=== PATIENT | female | born 1990 | race Caucasian/White ===

== ENCOUNTER 2017-02-12 09:43 | Emergency (ER) | payer BC ==
[2017-02-12 10:28] VITALS: BP 121/62
--- NOTE | 2017-02-12 11:07 | UC ---
Throat Pain/Nasal Sebastian HPI - HPI Summary HPI Summary: This is a 26 yo female who presents with c/o ST. She has chronically enlarged tonsils. She states she was yelling at a FB game yesterday and had a sudden onset of throat pain and tasted blood. She then became nauseous and vomited after dinner. Her nausea immediately resolved after vomiting. She feels that her R tonsil is swollen. No fever. No other recent illness. - History of Current Complaint Chief Complaint: UCRespiratory Stated Complaint: SORE THROAT Hx Last Menstrual Period: 04/03/16 - Allergies/Home Medications Allergies/Adverse Reactions: Allergies Allergy/AdvReac Type Severity Reaction Status Date / Time No Known Allergies Allergy Verified 02/12/17 10:26 PMH/Surg Hx/FS Hx/Imm Hx Previously Healthy: Yes - Surgical History Surgical History: None - Family History Known Family History: Positive: None - neg for HTN or CAD - Social History Alcohol Use: Rare Substance Use Type: None Smoking Status (MU): Never Smoked Tobacco Have You Smoked in the Last Year: No - Immunization History Most Recent Influenza Vaccination: jan 2015 Hx Tetanus, Diphtheria Vaccination: Yes Vaccination Up to Date: Yes Review of Systems Constitutional: Negative Skin: Negative Eyes: Negative ENT: Sore Throat Respiratory: Negative Cardiovascular: Negative Gastrointestinal: Negative Genitourinary: Negative Motor: Negative Neurovascular: Negative Musculoskeletal: Negative Neurological: Negative Psychological: Negative Is Patient Immunocompromised?: No All Other Systems Reviewed And Are Negative: Yes Physical Exam Triage Information Reviewed: Yes Appearance: Well-Appearing Vital Signs: Initial Vital Signs Temp 97.5 F 02/12/17 10:26 Pulse 64 02/12/17 10:26 Resp 16 02/12/17 10:26 BP 121/62 02/12/17 10:26 Pulse Ox 98 02/12/17 10:26 Vital Signs Reviewed: Yes ENT: Positive: Pharynx normal, TMs normal, Tonsillar swelling - 1-2+ (patient states this is chronic). Negative: Pharyngeal erythema, Tonsillar exudate Neck: Positive: Supple, Nontender, No Lymphadenopathy Respiratory: Positive: Lungs clear, Normal breath sounds. Negative: Crackles, Rhonchi, Wheezing Cardiovascular: Positive: RRR, No Murmur Abdomen Description: Positive: Nontender, Soft Musculoskeletal: Positive: Strength Intact Neurological: Positive: Alert Psychological Exam: Normal Psychological: Positive: Normal Response To Family Skin Exam: Normal Diagnostics - Laboratory Diagnostic Studies Completed/Ordered: Rapid strep - neg Throat Pain/Nasal Course/Dx - Course Course Of Treatment: This is an otherwise healthy 26 yo female with a ST. Exam benign, strep neg. Recommended throat lozenge for symptomatic relief. Likely irritated from straining her voice and vomiting - Differential Dx/Diagnosis Differential Diagnosis/HQI/PQRI: Laryngitis, Mononucleosis, Pharyngitis, Tonsillitis Provider Diagnoses: 1. Non-infectious pharyngitis - due to vomiting and voice straining Discharge - Discharge Plan Condition: Stable Disposition: HOME Patient Education Materials: Benzocaine/Menthol (By mouth) Referrals: Cynthia Singh NP [Primary Care Provider] - If Needed Additional Instructions: Instructions: 1. Your sore throat does not appear to be infectious 2. Try a throat lozenge to relieve discomfort
== END 2017-02-12 11:15 | disposition home or self-care (01) ==
LOC: UCEAST 09:43
DX: J02.9 Acute pharyngitis, unspecified (principal)
CPT/HCPCS: 87651; 99211; G0463

== ENCOUNTER 2018-02-16 07:55 | Emergency (ER) | payer BC, OTHER ==
[2018-02-16 08:16] VITALS: BP 123/68
--- NOTE | 2018-02-16 08:36 | UC ---
Throat Pain/Nasal Sebastian HPI - HPI Summary HPI Summary: 27-year-old woman comes in to the clinic today with 1 day history of a fever fatigue and body aches. She does have a mild sore throat. She measured a fever last night. She does have body aches but they're relatively mild. No other lightheaded when she stands up she is nauseous. She has not vomited. - History of Current Complaint Chief Complaint: UCGeneralIllness Stated Complaint: FEVER,SORE THROAT Time Seen by Provider: 02/16/18 08:24 Hx Last Menstrual Period: 01/19/18 Pain Intensity: 0 - Allergies/Home Medications Allergies/Adverse Reactions: Allergies Allergy/AdvReac Type Severity Reaction Status Date / Time No Known Allergies Allergy Verified 02/16/18 08:16 Home Medications: Home Medications NK [No Home Medications Reported] 02/16/18 [History Confirmed 02/16/18] PMH/Surg Hx/FS Hx/Imm Hx Previously Healthy: Yes - Surgical History Surgical History: None - Family History Known Family History: Positive: None - neg for HTN or CAD - Social History Alcohol Use: Rare Substance Use Type: None Smoking Status (MU): Never Smoked Tobacco Have You Smoked in the Last Year: No - Immunization History Most Recent Influenza Vaccination: jan 2015 Hx Tetanus, Diphtheria Vaccination: Yes Vaccination Up to Date: Yes Review of Systems Constitutional: Fever, Other - SEE HPI Skin: Negative Eyes: Negative ENT: Sore Throat - SEE HPI Respiratory: Negative Cardiovascular: Negative Gastrointestinal: Negative Motor: Negative Neurovascular: Negative Musculoskeletal: Negative Neurological: Negative Psychological: Negative Is Patient Immunocompromised?: No All Other Systems Reviewed And Are Negative: Yes Physical Exam Triage Information Reviewed: Yes Appearance: No Pain Distress, Well-Nourished, Ill-Appearing - MILD Vital Signs: Initial Vital Signs Temp 98.1 F 02/16/18 08:11 Pulse 110 02/16/18 08:11 Resp 18 02/16/18 08:11 BP 123/68 02/16/18 08:11 Pulse Ox 99 02/16/18 08:11 Vital Signs Reviewed: Yes Eye Exam: Normal Eyes: Positive: Conjunctiva Clear ENT: Positive: TMs normal, Tonsillar swelling - B/L, PATIENT REPORTS HX OF PERSISTENT ENLARGED TONSILS. Negative: Pharyngeal erythema, Nasal congestion, Nasal drainage Neck exam: Normal Neck: Positive: Supple Respiratory Exam: Normal Respiratory: Positive: Lungs clear, Normal breath sounds Cardiovascular: Positive: Tachycardia Musculoskeletal Exam: Normal Musculoskeletal: Positive: Strength Intact, ROM Intact Neurological Exam: Normal Neurological: Positive: Alert, Muscle Tone Normal Psychological Exam: Normal Psychological: Positive: Age Appropriate Behavior Skin Exam: Normal Throat Pain/Nasal Course/Dx - Course Course Of Treatment: Patient's sore throat is mild and overall not consistent with strep pharyngitis. She does have some body aches but they're not severe and her illness at this time at least is not consistent with influenza. We discussed viral verses back to reveal infections and the role of antibiotics. At this time we will treat this as a viral infection. The overall plan is symptomatic treatment and return if symptoms worsen or persist. - Differential Dx/Diagnosis Provider Diagnoses: VIRAL INFECTION. FEVER Discharge - Sign-Out/Discharge Documenting (check all that apply): Patient Departure All imaging exams completed and their final reports reviewed: No Studies - Discharge Plan Condition: Stable Disposition: HOME Patient Education Materials: Viral Syndrome (ED) Forms: *Work Release Referrals: Cynthia Singh NP [Primary Care Provider] - Additional Instructions: FOLLOW UP WITH YOUR DOCTOR IF NOT COMPLETELY IMPROVED. GET RECHECKED FOR ANY WORSENING OF YOUR CONDITION OR QUESTIONS OR CONCERNS. - Billing Disposition and Condition Condition: STABLE Disposition: Home
== END 2018-02-16 08:43 | disposition home or self-care (01) ==
LOC: UCEAST 07:55
DX: B34.9 Viral infection, unspecified (principal)
CPT/HCPCS: 99211; G0463

== ENCOUNTER 2018-02-18 17:02 | Emergency (ER) | payer BC, OTHER ==
[2018-02-18 17:12] VITALS: BP 124/80
[2018-02-18] MEDS ORDERED: Ibuprofen TAB* 600 MG PO ONE (17:19)
--- NOTE | 2018-02-18 17:24 | UC ---
Throat Pain/Nasal Sebastian HPI - HPI Summary HPI Summary: 27 year old woman comes in today with fever chills sore throat and body aches. It's been going on for 5 days. She has tried cough medicine is not helping the cough. She did take some acetaminophen this morning which does help with the fever. No sputum production no shortness of breath. No stiff neck. - History of Current Complaint Chief Complaint: UCRespiratory Stated Complaint: CHILLS,BODYACHES Time Seen by Provider: 02/18/18 17:08 Hx Last Menstrual Period: [id number] Pain Intensity: 3 - Allergies/Home Medications Allergies/Adverse Reactions: Allergies Allergy/AdvReac Type Severity Reaction Status Date / Time No Known Allergies Allergy Verified 02/18/18 17:14 Home Medications: Home Medications Acetaminophen TAB* [Tylenol TAB*] 500 mg PO Q4H PRN 02/18/18 [History Confirmed 02/18/18] [id number] LIQ* [Robitussin*] 5 mg PO Q4H PRN 02/18/18 [History Confirmed 02/18] PMH/Surg Hx/FS Hx/Imm Hx Previously Healthy: Yes - Surgical History Surgical History: None - Family History Known Family History: Positive: None - neg for HTN or CAD - Social History Alcohol Use: Rare Substance Use Type: None Smoking Status (MU): Never Smoked Tobacco Have You Smoked in the Last Year: No - Immunization History Most Recent Influenza Vaccination: jan 2015 Hx Tetanus, Diphtheria Vaccination: Yes Vaccination Up to Date: Yes Review of Systems Constitutional: Fever, Chills Skin: Negative Eyes: Negative ENT: Sore Throat, Nasal Discharge, Sinus Congestion Respiratory: Cough Cardiovascular: Negative Gastrointestinal: Negative Genitourinary: Negative Motor: Negative Neurovascular: Negative Musculoskeletal: Myalgia Neurological: Negative Psychological: Negative Is Patient Immunocompromised?: No All Other Systems Reviewed And Are Negative: Yes Physical Exam Triage Information Reviewed: Yes Appearance: No Pain Distress, Well-Nourished, Ill-Appearing - MILD Vital Signs: Initial Vital Signs Temp 102.0 F 02/18/18 17:07 Pulse 116 02/18/18 17:07 Resp 16 02/18/18 17:07 BP 124/80 02/18/18 17:07 Pulse Ox 98 02/18/18 17:07 Vital Signs Reviewed: Yes Eye Exam: Normal Eyes: Positive: Conjunctiva Clear ENT: Positive: Pharyngeal erythema, Nasal congestion, Nasal drainage, TMs normal Neck exam: Normal Neck: Positive: Supple Respiratory: Positive: Lungs clear, Normal breath sounds, No respiratory distress Cardiovascular: Positive: Tachycardia Musculoskeletal Exam: Normal Musculoskeletal: Positive: Strength Intact, ROM Intact Neurological Exam: Normal Neurological: Positive: Alert, Muscle Tone Normal Psychological Exam: Normal Psychological: Positive: Age Appropriate Behavior Skin Exam: Normal Throat Pain/Nasal Course/Dx - Course Course Of Treatment: Strep and influenza's were negative. Discussed further symptomatic treatment. Discussed viral infections versus bacterial infections and the role of antibiotics. The plan is to read a prescription for an antibiotic to be used if her condition continues or worsens into 7-10 days of symptoms. - Differential Dx/Diagnosis Provider Diagnoses: febrile illness Discharge - Sign-Out/Discharge Documenting (check all that apply): Patient Departure All imaging exams completed and their final reports reviewed: No Studies - Discharge Plan Condition: Stable Disposition: HOME Prescriptions: Amoxicillin/Clavulanate TAB* [Augmentin TAB 875*] 875 mg PO BID #20 tab Benzonatate CAP* [Tessalon 100 MG CAP*] 100 mg PO TID PRN #15 cap PRN Reason: Cough Patient Education Materials: Fever in Adults (ED), Upper Respiratory Infection (ED) Referrals: Cynthia Singh NP [Primary Care Provider] - Additional Instructions: FOLLOW UP WITH YOUR DOCTOR IF NOT COMPLETELY IMPROVED. GET RECHECKED FOR ANY WORSENING OF YOUR CONDITION OR QUESTIONS OR CONCERNS. - Billing Disposition and Condition Condition: STABLE Disposition: Home
== END 2018-02-18 18:13 | disposition home or self-care (01) ==
LOC: UCEAST 17:02
DX: R50.9 Fever, unspecified (principal); M79.10 Myalgia, unspecified site
CPT/HCPCS: 87651; 99212; A9270-GY; G0463

== ENCOUNTER 2020-12-25 12:25 | Inpatient (IN) ==
[~2020-12-25 12:25] MED LIST: Buffered Lidocaine 1% SYRIN 1 ml INTRADERM ONE
[2020-12-25] MEDS ORDERED: Penicillin G Potassium IV 5,000,000 UNITS in NS 0.9% 100 ml BAG 100 ML IVPB ONE (13:42)
[2020-12-25] MEDS ORDERED: Lactated Ringers 1000 ml BAG 1,000 ML IV ONE (13:42)
[2020-12-25] MEDS ORDERED: Buffered Lidocaine 1% SYRIN 1 ml INTRADERM ONE (13:42)
[2020-12-25] MEDS ORDERED: Penicillin G Potassium IV 3,000,000 UNITS in NS 0.9% 100 ml BAG 100 ML IVPB SCH ×2 (14:00→18:00)
[2020-12-25] MEDS ORDERED: Lactated Ringers 1000 ml BAG 1,000 ML IV SCH ×2 (14:00→18:00)
[2020-12-25 14:11] LABS: ABS Lymphocytes 1.6 10^3/ul (1.0-4.8); ABS Neutrophils 13.4 10^3/ul (1.5-7.7); Eosinophil % 0.1 %; Hematocrit 37 % (35-47); Hemoglobin 12.3 g/dL (12.0-16.0); Lymphocyte % 9.8 %; Mean Corpuscular HGB Conc 34 g/dL (31-36); Mean Corpuscular Hemoglobin 26 pg (27-31); Mean Corpuscular Volume 78 fL (80-97); Platelet Count 315 10^3/uL (150-450); Red Blood Count 4.72 10^6 /uL (3.70-4.87); Red Cell Distribution Width 14 % (10-15); White Blood Count 15.9 10^3/uL (3.5-10.8)
[2020-12-25 14:35] LABS: Urine Benzodiazepine Screen None Detected (None Detect); Urine Cannabinoids Screen None Detected (None Detect); Urine Opiates Screen None Detected (None Detect)
[2020-12-25] MEDS ORDERED: Oxytocin in LR 20 UNITS/1,000 ML BAG IVPB ONE (16:27)
[2020-12-25] MEDS ORDERED: Dibucaine 1% OINT 28.35 GM TUBE PR PRN (17:21)
[2020-12-25] MEDS ORDERED: witch hazeL 43% TOP.SOLN 200 ML PHA COMPOUND TOPICAL PRN (17:29)
[2020-12-25] MEDS ORDERED: Oxytocin in LR 20 UNITS/1,000 ML BAG IVPB SCH (18:00)
[2020-12-25] MEDS ORDERED: Lidocaine 1% VIAL 10 MG/ML VIAL ONE (20:55)
[2020-12-26] MEDS ORDERED: Measles, Mumps,Rubella VACC 0.5 ML/VIAL SUBCUT ONE (09:00)
[2020-12-26 09:45] LABS: ABS Lymphocytes 1.9 10^3/ul (1.0-4.8); ABS Monocytes 0.8 10^3/ul (0-0.8); ABS Neutrophils 8.9 10^3/ul (1.5-7.7); Eosinophil % 0.2 %; Hematocrit 27 % (35-47); Hemoglobin 9.1 g/dL (12.0-16.0); Lymphocyte % 16.2 %; Mean Corpuscular HGB Conc 34 g/dL (31-36); Mean Corpuscular Hemoglobin 26 pg (27-31); Mean Corpuscular Volume 77 fL (80-97); Mean Platelet Volume 8.1 fL (7.4-10.4); Platelet Count 242 10^3/uL (150-450); Red Blood Count 3.47 10^6 /uL (3.70-4.87); Red Cell Distribution Width 14 % (10-15); White Blood Count 11.7 10^3/uL (3.5-10.8)
[2020-12-27 08:06] VITALS: BP 104/53
== END 2020-12-27 16:20 | disposition home or self-care (01) | DRG 560 ==
LOC: MCHOBOUT 12:25 → MCHOB 13:37
PROVIDERS: ADMIT Midwife; ATTEND Midwife